=== PATIENT | male | born 1970 | race Two or more races ===

== ENCOUNTER → 2025-04-20 09:20 | Outpatient (CLI) | payer OTHER ==
[2025-04-20 10:10] LABS: BASO % 0.4 % (0.1-1.2); EOS # 0.28 (0.04-0.54); EOS % 3.4 % (0.7-7.0); LYMPH # 2.18 (1.18-3.74); LYMPH % 26.6 % (19.3-53.1); MEAN PLATELET VOLUME 10.20 fl (9.4-12.4); MONO # 0.64 (0.24-0.82); MONO % 7.8 % (4.7-12.5); NEUT # 5.06 (1.56-6.13); NEUT % 61.6 % (34.0-71.1); RED CELL DISTRIBUTION WIDTH 11.9 % (11.6-14.4)
[2025-04-20 10:25] LABS: URINE APPEARANCE Clear; URINE BILIRRUBIN Negative (NEGATIVE); URINE BLOOD Negative; URINE COLOR Yellow; URINE KETONE Trace (NEGATIVE); URINE LEUKOCYTE Negative; URINE NITRATE Negative; URINE PROTEIN Negative (NEGATIVE); URINE UROBILINOGEN 0.2 E.U./dl
[2025-04-20 10:30] LABS: URINE BACTERIA 5.9 uL (0.0-1933); URINE RBC 2.3 uL (0.0-20.8); URINE WBC 1.8 uL (0.0-23.2)
[2025-04-20 11:01] LABS: URINE EPITHELIAL CELLS 0.4 uL (0.0-38.8); URINE GLUCOSE 500 MG/DL (NEGATIVE)
[2025-04-20 11:02] LABS: URINE CAST 0.14 uL (0.0-1.40)
[2025-04-20 12:08] LABS: BUN CREA RATIO 14 (7.0-25.0); CREATININE SERUM 0.85 mg/dL (0.70-1.30); GFR 93.93; GLUCOSE FASTING 224 mg/dL (65-100); OSMOLALITY SERUM 282 MOSM/KG (275-295)
[2025-04-20 12:09] LABS: ALT/SGPT 36 U/L (12-78); AST/SGOT 14 U/L (15-37); BILIRUBIN TOTAL 0.32 mg/dL (0.3-1.2); CHOL HDL RATIO 6.0 (0-5.0); GLOBULINA 3.8 G/DL (2.4-3.5); HDL 42 mg/dl (40-60); LDL 189 mg/dl (0-130); PROSTATIC SPECIFIC ANTIGEN 1.29 NG/ML (0.010-4.00); T4 FREE 0.81 NG/ML (0.76-1.46); TSH 1.730 uIU/mL (0.358-3.74); VLDL 20 (0-39)
[2025-04-20 14:54] LABS: ob NEGATIVE (NEGATIVE)
[2025-04-21 07:07] LABS: HOMOCYSTEINE 11.1 umol/L (0.0-14.5)
[2025-04-21 09:11] LABS: INSULIN LEVELS 19.5 uIU/mL (2.6-24.9)
== END | disposition home or self-care (01) ==
LOC: LAB 09:20
DX: E11.9 Type 2 diabetes mellitus without complications (principal); Z00.00 Encounter for general adult medical examination without abnormal findings; Z13.9 Encounter for screening, unspecified

== ENCOUNTER → 2025-04-21 08:16 | Outpatient (CLI) | payer OTHER ==
[2025-04-22 09:08] LABS: hav igm Negative (Negative); hep b c Negative (Negative); hep b s ag Negative (Negative)
== END | disposition home or self-care (01) ==
LOC: LAB 08:16
DX: D50.9 Iron deficiency anemia, unspecified (principal); E74.00 Glycogen storage disease, unspecified; R74.8 Abnormal levels of other serum enzymes; R73.02 Impaired glucose tolerance (oral); E55.9 Vitamin D deficiency, unspecified; E78.5 Hyperlipidemia, unspecified; R53.81 Other malaise; B18.2 Chronic viral hepatitis C

== ENCOUNTER → 2025-05-15 07:02 | Outpatient (CLI) | payer OTHER ==
[2025-05-15 07:57] LABS: BASO % 0.3 % (0.1-1.2); EOS # 0.29 (0.04-0.54); EOS % 3.2 % (0.7-7.0); LYMPH # 2.22 (1.18-3.74); LYMPH % 24.4 % (19.3-53.1); MEAN PLATELET VOLUME 11.10 fl (9.4-12.4); MONO # 0.91 (0.24-0.82); MONO % 10.0 % (4.7-12.5); NEUT # 5.63 (1.56-6.13); NEUT % 61.9 % (34.0-71.1); RED CELL DISTRIBUTION WIDTH 11.9 % (11.6-14.4)
[2025-05-15 08:58] LABS: ALT/SGPT 31.0 U/L (12-78); AST/SGOT 15.0 U/L (15-37); BILIRUBIN TOTAL 0.39 mg/dL (0.3-1.2); BUN CREA RATIO 20.0 (7.0-25.0); CHOL HDL RATIO 7.1 (0-5.0); CREATININE SERUM 0.88 mg/dL (0.70-1.30); GFR 90.24; GLOBULINA 3.5 G/DL (2.4-3.5); GLUCOSE FASTING 168.0 mg/dL (65-100); HDL 38.0 mg/dl (40-60); LDL 190.0 mg/dl (0-130); OSMOLALITY SERUM 287.0 MOSM/KG (275-295); VLDL 41.0 (0-39)
[2025-05-16 07:11] LABS: hav igm Negative (Negative); hep b c Negative (Negative); hep b s ag Negative (Negative)
[2025-05-16 21:07] LABS: chla t Negative (Negative); neiss Negative (Negative)
== END | disposition home or self-care (01) ==
LOC: LAB 07:02
DX: E78.5 Hyperlipidemia, unspecified (principal); E11.9 Type 2 diabetes mellitus without complications; Z13.9 Encounter for screening, unspecified; Z00.00 Encounter for general adult medical examination without abnormal findings

== ENCOUNTER → 2025-08-05 08:15 | Outpatient (CLI) | payer OTHER ==
[~2025-08-05 08:15] MED LIST: NAPROXEN500 MG PO
[2025-08-05 09:50] LABS: ALT/SGPT 35.0 U/L (12-78); AST/SGOT 16.0 U/L (15-37); BILIRUBIN TOTAL 0.44 mg/dL (0.3-1.2); BUN CREA RATIO 17.0 (7.0-25.0); CHOL HDL RATIO 6.2 (0-5.0); CREATININE SERUM 0.75 mg/dL (0.70-1.30); GFR 108.53; GLOBULINA 3.3 G/DL (2.4-3.5); HDL 44.0 mg/dl (40-60); LDL 201.0 mg/dl (0-130); VLDL 26.0 (0-39)
[2025-08-05 09:51] LABS: OSMOLALITY SERUM 286.0 MOSM/KG (275-295)
[2025-08-05 09:52] LABS: GLUCOSE FASTING 219.0 mg/dL (65-100)
== END | disposition home or self-care (01) ==
LOC: LAB 08:15
DX: R10.9 Unspecified abdominal pain (principal); E78.5 Hyperlipidemia, unspecified; E11.9 Type 2 diabetes mellitus without complications

== ENCOUNTER 2025-08-05 16:57 | Emergency (ER) | payer OTHER ==
[~2025-08-05] VITALS: Ht 165.1 cm; Wt 89.8 kg
[2025-08-05] MEDS ORDERED: KETOROLAC TROMETHAMINE 30 MG VIAL IM STA (18:24)
[2025-08-05] MEDS ORDERED: DEXAMETHASONE SODIUM PHOSPHATE 4 MG/ML VIAL IM STA (18:24)
[2025-08-05 18:25] VITALS: BP 116/79; O2SAT 97
[2025-08-05] MEDS ORDERED: DEXAMETHASONE SODIUM PHOSPHATE 4 MG/ML VIAL ONE (18:53)
[2025-08-05] MEDS ORDERED: KETOROLAC TROMETHAMINE 30 MG VIAL ONE (18:53)
[2025-08-05 19:21] LABS: BASO % 0.3 % (0.1-1.2); EOS # 0.43 (0.04-0.54); EOS % 4.0 % (0.7-7.0); LYMPH # 3.10 (1.18-3.74); LYMPH % 29.2 % (19.3-53.1); MEAN PLATELET VOLUME 9.50 fl (9.4-12.4); MONO # 0.88 (0.24-0.82); MONO % 8.3 % (4.7-12.5); NEUT # 6.15 (1.56-6.13); NEUT % 57.9 % (34.0-71.1); RED CELL DISTRIBUTION WIDTH 11.8 % (11.6-14.4)
[2025-08-05 19:52] LABS: INR 1.01
[2025-08-05 19:55] LABS: BUN CREA RATIO 22.0 (7.0-25.0); CREATININE SERUM 0.67 mg/dL (0.70-1.30); GFR 123.61; GLUCOSE FASTING 118.0 mg/dL (65-100); OSMOLALITY SERUM 279.0 MOSM/KG (275-295)
[2025-08-05] MEDS ORDERED: NAPROXEN500 MG PO (22:02)
== END 2025-08-05 22:25 | disposition home or self-care (01) ==
LOC: ER 16:57
PROVIDERS: General Practice
DX: R07.89 Other chest pain (principal)

== ENCOUNTER 2025-09-01 14:57 | Emergency (ER) | payer OTHER ==
[~2025-09-01] VITALS: Ht 165.1 cm; Wt 92.1 kg
[2025-09-01] MEDS ORDERED: GLIMEPIRIDE4 M1 (15:08)
[2025-09-01] MEDS ORDERED: KETOROLAC TROMETHAMINE 60 MG VIAL IM ONE (17:15)
[2025-09-01] MEDS ORDERED: CEFTRIAXONE SODIUM 1,000 MG VIAL IM ONE (17:15)
[2025-09-01] MEDS ORDERED: TAMSULOSIN HCL 0.4 MG CAP PO ONE (17:15)
[2025-09-01 18:25] LABS: BASO % 0.3 % (0.1-1.2); EOS # 0.38 (0.04-0.54); EOS % 3.9 % (0.7-7.0); LYMPH # 2.82 (1.18-3.74); LYMPH % 29.2 % (19.3-53.1); MEAN PLATELET VOLUME 9.50 fl (9.4-12.4); MONO # 0.85 (0.24-0.82); MONO % 8.8 % (4.7-12.5); NEUT # 5.56 (1.56-6.13); NEUT % 57.5 % (34.0-71.1); RED CELL DISTRIBUTION WIDTH 11.9 % (11.6-14.4)
[2025-09-01 19:29] LABS: URINE APPEARANCE Clear; URINE BILIRRUBIN Negative (NEGATIVE); URINE BLOOD Negative; URINE COLOR Yellow; URINE GLUCOSE Negative (NEGATIVE); URINE KETONE Negative (NEGATIVE); URINE LEUKOCYTE Negative; URINE NITRATE Negative; URINE PROTEIN Negative (NEGATIVE); URINE UROBILINOGEN 0.2 E.U./dl
[2025-09-01 19:33] LABS: URINE RBC 2.1 uL (0.0-20.8)
[2025-09-01 19:34] LABS: URINE BACTERIA 1.1 uL (0.0-1933); URINE CAST 0.00 uL (0.0-1.40); URINE EPITHELIAL CELLS 0.0 uL (0.0-38.8); URINE WBC 0.9 uL (0.0-23.2)
[2025-09-01] MEDS ORDERED: PEPCID AC20 MG PO (19:47)
[2025-09-01] MEDS ORDERED: BACTRIM DS TAB1 EACH PO (19:47)
[2025-09-01] MEDS ORDERED: TAMSULOSIN HCL0.4 MG PO (19:47)
== END 2025-09-01 21:26 | disposition home or self-care (01) ==
LOC: ER 14:58
PROVIDERS: General Practice
DX: N40.0 Benign prostatic hyperplasia without lower urinary tract symptoms (principal); N39.0 Urinary tract infection, site not specified; E11.9 Type 2 diabetes mellitus without complications; Z79.84 Long term (current) use of oral hypoglycemic drugs

== ENCOUNTER 2025-09-02 09:36 | Outpatient (CLI) | payer OTHER ==
[~2025-09-02 09:36] MED LIST changes: +BACTRIM DS TAB1 EACH PO; +GLIMEPIRIDE4 M1; +PEPCID AC20 MG PO; +TAMSULOSIN HCL0.4 MG PO
== END 2025-09-02 09:40 | disposition home or self-care (01) ==
LOC: LAB 09:36
PROVIDERS: ATTEND General Practice
DX: Z01.89 Encounter for other specified special examinations (principal)